=== PATIENT | male | born 1985 | race Caucasian/White ===

== ENCOUNTER 2023-11-17 09:46 | Emergency (ER) | payer BC, SELFPAY ==
[2023-11-17 09:54] VITALS: BP 131/94; PULSE 111; RESP 16; TEMP 37; O2SAT 98
--- NOTE | 2023-11-17 10:03 | ED.SKABFB ---
HPI - Skin/Abscess/Foreign Bdy General Chief complaint: Skin/Abscess/Foreign Body Stated complaint: Skin Sore Time Seen by Provider: 11/17/23 10:03 Source: patient Mode of arrival: ambulatory Limitations: no limitations History of Present Illness HPI narrative: 37 yo M presents with abscess to R groin. Pt shaves pubic hair. has had multiple abscess/ingrown hairs. Has had them opened and drained. Afebrile. All systems reviewed and negative except as noted above. Related Data Allergies Allergy/AdvReac Type Severity Reaction Status Date / Time No Known Allergies Allergy Unknown Verified 06/20/14 10:53 Review of Systems Review of Systems: CONSTITUTIONAL: Denies fever, chills, or sweats. EYES: Denies visual changes, redness, or discharge. ENT: Denies rhinorrhea, congestion, sore throat, or otalgia. CARDIOVASCULAR: Denies chest pain, palpitations, or edema. RESPIRATORY: Denies cough or dyspnea. GASTROINTESTINAL: Denies abdominal pain, nausea, vomiting, or diarrhea. GENITOURINARY: Denies dysuria or hematuria. SKIN: Denies rash or itching. Reports abscess to R groin. MUSCULOSKELETAL: Denies back pain, joint pain, or myalgia. NEUROLOGIC: Denies headache, numbness, or weakness. PSYCHIATRIC: Denies anxiety or depression. All other systems reviewed are negative, except as documented in HPI. PMFSH Comments At time of signature, agree with nursing past medical, surgical, social and family history. There is no relevant family history pertinent to the presenting complaint. Exam Narrative: GENERAL: This is a well-nourished, well-developed patient, in no apparent distress. HEAD: normocephalic, atraumatic. EYES: PERRL. Sclera clear/white. Vision is grossly intact. EARS: External ears normal NOSE: External nose normal . NECK: Neck supple, non-tender without lymphadenopathy, masses or thyromegaly. CARDIOVASCULAR: Regular rate and rhythm without murmurs, gallops, or rubs. RESPIRATORY: Clear to auscultation. Breath sounds equal bilaterally. No wheezes, rales, or rhonchi. SKIN: warm, Dry, intact with no suspicious lesions or rash, good texture and turgor. abscess to R groin. approx. 3cm diameter erythema with fluctuance and another 3 to 4 cm of erythema with induration. warm and tender to touch. NEURO: awake, alert, and oriented to person, place and time. There were no obvious focal neurologic abnormalities. EXTREMITIES: No joint tenderness, effusion, or edema noted. Course Course Level of Care: Express Care Visit Vital Signs Vital signs: Vital Signs Temperature 37.0 C 11/17/23 09:54 Pulse Rate 111 H 11/17/23 09:54 Respiratory Rate 16 11/17/23 09:54 Blood Pressure 131/94 H 11/17/23 09:54 Pulse Oximetry 98 11/17/23 09:54 Oxygen Delivery Room Air 11/17/23 09:54 Temperature 37.0 C 11/17/23 09:54 Pulse Rate 111 H 11/17/23 09:54 Respiratory Rate 16 11/17/23 09:54 Blood Pressure 131/94 H 11/17/23 09:54 Pulse Oximetry 98 11/17/23 09:54 Oxygen Delivery Room Air 11/17/23 09:54 reviewed Procedures Abscess I/D other: Date of Incision: 11/17/23 Time of Incision: 10:00 Side (if applicable): right (groin) Sedation/analgesia: none Local Anesthetic: lidocaine 2% Amount of anesthesia used (mL): 6 Technique: incised with #11 blade Irrigation: No Packing used?: none I&D Results: Pus and Blood MDM - Skin/Abscess/Foreign Bdy MDM Narrative Medical decision making narrative: Patient is aware of diagnosis, understands and agrees to treatment plan. Anticipatory guidance given. Patient agrees to follow-up as directed and is aware of reasons to seek care at the emergency department. Portions of this record may have been created with voice recognition software abscess to R groin I and D. small amount of pus noted. prescribed clindamycin. recommend stop shaving pubic hair due to multiple abscess. REcommend follow up with PCP. Diff
== END 2023-11-17 10:39 | disposition home or self-care (01) ==
PROVIDERS: Emergency Provider Nurse Practitioner Family
DX: L02.214 Cutaneous abscess of groin (principal)
CPT/HCPCS: 10060; 99213; G0463